=== PATIENT | male | born 1970 | race Caucasian/White ===

== ENCOUNTER 2024-05-03 04:46 | Emergency (ER) | payer SELFPAY | END 2024-05-03 05:42 | disposition home or self-care (01) | LOC: FB.ED 04:46 | DX: S60.221A Contusion of right hand, initial encounter (principal); F17.210 Nicotine dependence, cigarettes, uncomplicated; Z88.5 Allergy status to narcotic agent; W19.XXXA Unspecified fall, initial encounter | CPT/HCPCS: 73110-RT; 99283 ==

== ENCOUNTER 2024-10-18 00:01 | Emergency (ER) | payer OTHER | END 2024-10-18 00:34 | disposition home or self-care (01) | LOC: FB.ED 00:01 | DX: Z02.89 Encounter for other administrative examinations (principal); Z88.5 Allergy status to narcotic agent | CPT/HCPCS: 99283 ==

== ENCOUNTER 2025-08-03 12:42 | Emergency (ER) | payer OTHER ==
[2025-08-03] MEDS: Ondansetron 4 MG Tab.DIS PO ONE (13:03)
[2025-08-03 13:05] LABS: BASOPHILS ABSOLUTE AUTO 0.1 x10-3/uL (0.0-0.3); BASOPHILS PERCENT AUTO 1.4 % (0.3-3.8); EOSINOPHILS ABSOLUTE AUTO 0.3 x10-3/uL (0.0-0.6); EOSINOPHILS PERCENT AUTO 3.9 % (0.1-6.8); LYMPHOCYTES ABSOLUTE AUTO 3.8 x10-3/uL (0.5-4.5); LYMPHOCYTES PERCENT AUTO 46.6 % (15.8-45.3); MEAN PLATELET VOLUME 7.0 fL (6.7-11.0); MONOCYTES ABSOLUTE AUTO 0.8 x10-3/uL (0.0-1.2); MONOCYTES PERCENT AUTO 10.1 % (5.5-15.2); NEUTROPHILS ABSOLUTE AUTO 3.1 x10-3/uL (1.7-6.9); NEUTROPHILS PERCENT AUTO 38.0 % (40.3-71.8); PLATELET COUNT,PLT 347 x10(3)uL (117-477); RED BLOOD CELL COUNT 4.54 x10(6)uL (3.90-5.90); RED CELL DISTRIBUTION WIDTH 13.9 % (12.4-15.0); WHITE BLOOD CELL COUNT,WBC 8.1 x10-3/uL (3.2-10.1)
[2025-08-03 13:09] LABS: BLOOD UREA NITROGEN,BUN 9 mg/dL (7-18); CARBON DIOXIDE,CO2 29 mmol/L (21-32); CHLORIDE,CL 103 mmol/L (100-110); CREATININE 1.0 mg/dL (0.70-1.30); EST CRCL DRUG DOSING (CG) 63.58 mL/min; ESTIMATED GFR 90 mL/min (>60); GLUCOSE RANDOM 126 mg/dL (80-116); POTASSIUM,K 3.6 mmol/L (3.5-5.3); SODIUM,NA 140 mmol/L (135-145)
[2025-08-03 13:14] LABS: A/G RATIO 0.8; ALANINE AMINOTRANSFERASE,ALT 53 U/L (12-36); ASPARTATE AMNIOTRANSFERASE,AST 43 IU/L (5-25); BILIRUBIN TOTAL 0.4 mg/dL (0.1-1.3); PROTEIN TOTAL,TP 7.5 g/dL (6.0-8.0)
== END 2025-08-03 13:40 ==
LOC: FB.ED 12:42
DX: R07.9 Chest pain, unspecified (principal); J44.9 Chronic obstructive pulmonary disease, unspecified; Z86.59 Personal history of other mental and behavioral disorders; Z88.5 Allergy status to narcotic agent; Z90.49 Acquired absence of other specified parts of digestive tract
CPT/HCPCS: 36415; 71045; 80053; 84484; 85025; 99285; Q0162; 93005; 93010; 99283